=== PATIENT | female | born 1945 | race Asian ===

== ENCOUNTER 2022-01-25 15:18 | Emergency (ER) | payer OTHER ==
[2022-01-25 15:48] VITALS: BMI 20.1
[2022-01-25] MEDS ORDERED: ONDANSETRON 4 MG/2 ML VIAL IVPUSH ONE (15:56)
[2022-01-25] MEDS ORDERED: ACETAMINOPHEN 1000 MG/100 ML BAG IVPB ONE (15:56)
[2022-01-25] MEDS ORDERED: SODIUM CHLORIDE 1,000 ML IV STA (15:56)
[2022-01-25] MEDS ORDERED: ONDANSETRON 4 MG/2 ML VIAL ONE (16:02)
[2022-01-25] MEDS ORDERED: ACETAMINOPHEN INJECTION 100 ML IVPB ONE (16:03)
[2022-01-25 16:24] LABS: HEMATOCRIT 34.7 % (32.4-45.2); HEMOGLOBIN 12.5 G/dL (10.7-15.3); MCH 32.2 pg (25.7-33.7); MEAN CELL VOLUME 89.4 fl (80-96); MEAN PLT VOLUME 9.2 fl (7.5-11.1); PLATELET COUNT 136.7 10^3/uL (134-434); RBC 3.88 10^6/uL (3.60-5.2); RDW 14.5 % (11.6-15.6); WHITE BLOOD COUNT 4.1 10^3/uL (4.0-10.8)
[2022-01-25 16:30] LABS: ALBUMIN 4.4 g/dl (3.4-5.0); BILIRUBIN,TOTAL 1.4 mg/dl (0.2-1); CALCIUM 9.4 mg/dl (8.5-10); CREATININE 0.6 mg/dl (0.55-1.3); TOT PROT 6.4 g/dl (6.4-8.2)
[2022-01-25 16:52] LABS: PLATELET ESTIMATE ADEQUATE
[2022-01-25 17:44] LABS: VENOUS BASE EXCESS 0.3 mmol/L (-2-2); VENOUS O2 SATURATION 94.6 % (70-80); VENOUS PCO2 46.2 mmHg (38-52); VENOUS PH 7.368 (7.310-7.410)
[2022-01-25 18:07] VITALS: BP 139/62; PULSE 60; TEMP 98.8
== END 2022-01-25 18:45 | disposition home or self-care (01) ==
LOC: FER 15:18
PROC: 3E033GC Introduction of Other Therapeutic Substance into Peripheral Vein, Percutaneous Approach (ICD-10-PCS; principal; 2022-01-25)
DX: R42 Dizziness and giddiness (principal)
CPT/HCPCS: 36415; 70450-TC; 71045-TC-FY; 80053; 82010; 82803; 84484; 85027; 93005; 99285-25

== ENCOUNTER 2022-03-07 10:55 | Inpatient (IN) | payer OTHER ==
[2022-03-07 13:29] LABS: HEMATOCRIT 35.5 % (32.4-45.2); HEMOGLOBIN 12.8 G/dL (10.7-15.3); MCH 32.3 pg (25.7-33.7); MCHC 35.9 g/dl (32.0-36.0); MEAN CELL VOLUME 89.8 fl (80-96); MEAN PLT VOLUME 9.1 fl (7.5-11.1); PLATELET COUNT 150.4 10^3/uL (134-434); RBC 3.95 10^6/uL (3.60-5.2); RDW 14.1 % (11.6-15.6); WHITE BLOOD COUNT 5.1 10^3/uL (4.0-10.8)
[2022-03-07 13:37] LABS: ALBUMIN 4.3 g/dl (3.4-5.0); BILIRUBIN,TOTAL 0.9 mg/dl (0.2-1); CALCIUM 9.2 mg/dl (8.5-10); CREATININE 0.5 mg/dl (0.55-1.3); TOT PROT 6.6 g/dl (6.4-8.2)
[2022-03-07 13:52] LABS: PLATELET ESTIMATE ADEQUATE
[2022-03-07] MEDS ORDERED: HEPARIN NA (PORCINE) 5,000 UNITS/ML 1ML VIAL SQ SCH (15:00)
[2022-03-07] MEDS ORDERED: HEPARIN NA (PORCINE) 5,000 UNITS/ML 1ML VIAL ONE (15:15)
[2022-03-07 16:37] LABS: EPITHELIAL CELLS RARE /hpf
[2022-03-07] MEDS: INSULIN SLIDING SCALE (NOVOLOG) 1 VIAL SQ SCH ×2 (18:26→22:23)
[2022-03-07] MEDS: ACETAMINOPHEN 1000 MG/100 ML BAG IVPB PRN (21:18)
[2022-03-08] MEDS: ACETAMINOPHEN 1000 MG/100 ML BAG IVPB PRN ×3 (06:32→20:02)
[2022-03-08] MEDS: INSULIN SLIDING SCALE (NOVOLOG) 1 VIAL SQ SCH ×4 (06:48→21:49)
[2022-03-08] MEDS ORDERED: VANCOMYCIN 1,000 MG VIAL (RESTRICTED TO ID ONLY) ONE (07:17)
[2022-03-08] MEDS ORDERED: ceFAZolin SODIUM 1 GM VIAL ONE ×3 (07:17→08:26)
[2022-03-08] MEDS ORDERED: PROPOFOL 120 ML ONE (07:21)
[2022-03-08] MEDS ORDERED: MIDAZOLAM HCL 2 MG/2 ML SINGLE DOSE VIAL ONE (07:28)
[2022-03-08] MEDS ORDERED: ROPIVACAINE HCL 0.5% 30ML VIAL ONE (07:31)
[2022-03-08] MEDS ORDERED: BUPIVACAINE HCL 50 ML ONE (07:31)
[2022-03-08] MEDS ORDERED: ROPIVACAINE HCL/PF 100 MG/20 ML VIAL ONE (07:39)
[2022-03-08] MEDS ORDERED: TRANEXAMIC ACID 1000 MG/10 ML VIAL ONE (08:28)
[2022-03-08] MEDS ORDERED: MAG HYDROX/AL HYDROX/SIMETH 30 ML UNIT-DOSE CUP PO PRN ×2 (09:11→09:35)
[2022-03-08] MEDS ORDERED: metFORMIN HCL 500 MG TABLET (FP) PO SCH ×3 (09:15→18:00)
[2022-03-08] MEDS ORDERED: PROMETHAZINE HCL 25 MG/1 ML VIAL IVPUSH PRN (09:28)
[2022-03-08] MEDS ORDERED: ONDANSETRON 4 MG/2 ML VIAL IVPUSH PRN (09:28)
[2022-03-08] MEDS ORDERED: HYDROmorphone HCL/PF 1 MG/ML VIAL IVPUSH PRN ×2 (09:28)
[2022-03-08] MEDS: amLODIPine BESYLATE 2.5 MG TABLET (FP) PO SCH (10:00)
[2022-03-08] MEDS ORDERED: SENNOSIDES/DOCUSATE COMBO (SENNA PLUS) TABLET (UD) PO SCH (10:00)
[2022-03-08] MEDS ORDERED: TIMOLOL 0.5% OPHTHALMIC SOL 5 ML BOTTLE OU SCH (10:00)
[2022-03-08] MEDS ORDERED: LOSARTAN POTASSIUM 25 MG TABLET PO SCH (10:00)
[2022-03-08] MEDS ORDERED: amLODIPine BESYLATE 2.5 MG TABLET (FP) PO SCH (10:00)
[2022-03-08] MEDS: MULTIVITAMINS (DAILY MVI) TABLET (FP) PO SCH (10:00)
[2022-03-08] MEDS: SENNOSIDES/DOCUSATE COMBO (SENNA PLUS) TABLET (UD) PO SCH ×2 (10:00→21:48)
[2022-03-08] MEDS: LOSARTAN POTASSIUM 25 MG TABLET PO SCH (10:00)
[2022-03-08] MEDS ORDERED: MULTIVITAMINS (DAILY MVI) TABLET (FP) PO SCH (10:00)
[2022-03-08] MEDS: PANTOPRAZOLE 40 MG TABLET PO SCH (10:00)
[2022-03-08] MEDS ORDERED: PANTOPRAZOLE 40 MG TABLET PO SCH (10:00)
[2022-03-08] MEDS: TIMOLOL 0.5% OPHTHALMIC SOL 5 ML BOTTLE OU SCH ×2 (11:00→21:50)
[2022-03-08] MEDS: LACTATED RINGERS SOLUTION 1,000 ML IV SCH (12:34)
[2022-03-08] MEDS ORDERED: CEFAZOLIN SODIUM 2 GM in DEXTROSE 5%-WATER 100 ML IVPB SCH (16:00)
[2022-03-08] MEDS: CEFAZOLIN SODIUM 2 GM in SODIUM CHLORIDE 100 ML IVPB SCH ×2 (16:38→23:05)
[2022-03-08] MEDS: ROSUVASTATIN CA 10 MG TABLET PO SCH (21:49)
[2022-03-08] MEDS ORDERED: ROSUVASTATIN CA 10 MG TABLET PO SCH (22:00)
[2022-03-09] MEDS: ACETAMINOPHEN 1000 MG/100 ML BAG IVPB PRN (05:54)
[2022-03-09] MEDS: glipiZIDE 5 MG TABLET (FP) PO SCH (06:58)
[2022-03-09] MEDS: metFORMIN HCL 500 MG TABLET (FP) PO SCH (06:58)
[2022-03-09] MEDS: sitaGLIPtin PHOSPHATE 50 MG TABLET PO SCH (06:58)
[2022-03-09] MEDS: INSULIN SLIDING SCALE (NOVOLOG) 1 VIAL SQ SCH ×4 (06:59→21:17)
[2022-03-09] MEDS ORDERED: glipiZIDE 10 MG TABLET (FP) PO SCH (07:00)
[2022-03-09] MEDS ORDERED: ASPIRIN 325 MG TABLET PO SCH (08:00)
[2022-03-09 08:13] LABS: HEMATOCRIT 35.5 % (32.4-45.2); HEMOGLOBIN 12.4 G/dL (10.7-15.3); MCH 31.5 pg (25.7-33.7); MCHC 34.9 g/dl (32.0-36.0); MEAN CELL VOLUME 90.3 fl (80-96); MEAN PLT VOLUME 9.6 fl (7.5-11.1); PLATELET COUNT 124.6 10^3/uL (134-434); RBC 3.93 10^6/uL (3.60-5.2); RDW 13.7 % (11.6-15.6); WHITE BLOOD COUNT 6.8 10^3/uL (4.0-10.8)
[2022-03-09 08:19] LABS: CALCIUM 8.6 mg/dl (8.5-10); CREATININE 0.5 mg/dl (0.55-1.3)
[2022-03-09] MEDS: SENNOSIDES/DOCUSATE COMBO (SENNA PLUS) TABLET (UD) PO SCH ×2 (09:38→21:14)
[2022-03-09] MEDS: LOSARTAN POTASSIUM 25 MG TABLET PO SCH (09:39)
[2022-03-09] MEDS: ASPIRIN 325 MG TABLET PO SCH (09:39)
[2022-03-09] MEDS: MULTIVITAMINS (DAILY MVI) TABLET (FP) PO SCH (09:39)
[2022-03-09] MEDS: PANTOPRAZOLE 40 MG TABLET PO SCH (09:39)
[2022-03-09] MEDS: LACTATED RINGERS SOLUTION 1,000 ML IV SCH (09:40)
[2022-03-09] MEDS: amLODIPine BESYLATE 2.5 MG TABLET (FP) PO SCH (09:40)
[2022-03-09] MEDS: TIMOLOL 0.5% OPHTHALMIC SOL 5 ML BOTTLE OU SCH ×2 (11:00→21:14)
[2022-03-09] MEDS: traMADol HCL 50 MG TABLET PO PRN (15:52)
[2022-03-09] MEDS: ROSUVASTATIN CA 10 MG TABLET PO SCH (21:14)
[2022-03-09 23:45] VITALS: BMI 19.3
[2022-03-10] MEDS: traMADol HCL 50 MG TABLET PO PRN ×2 (06:44→16:48)
[2022-03-10] MEDS: INSULIN SLIDING SCALE (NOVOLOG) 1 VIAL SQ SCH ×4 (06:45→21:23)
[2022-03-10] MEDS: glipiZIDE 5 MG TABLET (FP) PO SCH (06:45)
[2022-03-10] MEDS: sitaGLIPtin PHOSPHATE 50 MG TABLET PO SCH (06:45)
[2022-03-10] MEDS: metFORMIN HCL 500 MG TABLET (FP) PO SCH (06:45)
[2022-03-10] MEDS: ASPIRIN 325 MG TABLET PO SCH (08:41)
[2022-03-10 09:07] LABS: ALBUMIN 3.4 g/dl (3.4-5.0); BILIRUBIN,TOTAL 1.4 mg/dl (0.2-1); CALCIUM 8.4 mg/dl (8.5-10); CREATININE 0.6 mg/dl (0.55-1.3); MAGNESIUM 1.5 mg/dL (1.8-2.4); TOT PROT 5.5 g/dl (6.4-8.2)
[2022-03-10] MEDS ORDERED: MAGNESIUM OXIDE 400 MG TABLET (FP) PO ONE (09:26)
[2022-03-10] MEDS: ACETAMINOPHEN 325 MG TABLET (FP) PO PRN (09:56)
[2022-03-10] MEDS: SENNOSIDES/DOCUSATE COMBO (SENNA PLUS) TABLET (UD) PO SCH ×2 (09:56→21:21)
[2022-03-10] MEDS: MULTIVITAMINS (DAILY MVI) TABLET (FP) PO SCH (09:57)
[2022-03-10] MEDS: amLODIPine BESYLATE 2.5 MG TABLET (FP) PO SCH (09:57)
[2022-03-10] MEDS: PANTOPRAZOLE 40 MG TABLET PO SCH (09:57)
[2022-03-10] MEDS: LOSARTAN POTASSIUM 25 MG TABLET PO SCH (09:57)
[2022-03-10] MEDS: TIMOLOL 0.5% OPHTHALMIC SOL 5 ML BOTTLE OU SCH ×2 (10:00→21:22)
[2022-03-10 10:13] LABS: BASO % 0.1 % (0-2.0); EOS % 0.5 % (0-4.5); HEMATOCRIT 30.9 % (32.4-45.2); HEMOGLOBIN 10.7 GM/dL (10.7-15.3); LYMPH % 14.6 % (8-40); MCH 30.8 pg (25.7-33.7); MCHC 34.7 g/dl (32.0-36.0); MEAN CELL VOLUME 88.8 fl (80-96); MEAN PLT VOLUME 9.7 fl (7.5-11.1); MONO % 13.5 % (3.8-10.2); NEUT % 71.3 % (42.8-82.8); PLATELET COUNT 127 10^3/uL (134-434); RBC 3.49 M/mm3 (3.60-5.2); RDW 13.2 % (11.6-15.6); WHITE BLOOD COUNT 6.2 K/mm3 (4.0-10.0)
[2022-03-10] MEDS: LACTATED RINGERS SOLUTION 1,000 ML IV SCH (11:46)
[2022-03-10] MEDS: ROSUVASTATIN CA 10 MG TABLET PO SCH (21:21)
[2022-03-11] MEDS: INSULIN SLIDING SCALE (NOVOLOG) 1 VIAL SQ SCH ×4 (06:46→21:58)
[2022-03-11] MEDS: metFORMIN HCL 500 MG TABLET (FP) PO SCH (06:46)
[2022-03-11] MEDS: sitaGLIPtin PHOSPHATE 50 MG TABLET PO SCH (06:47)
[2022-03-11] MEDS: glipiZIDE 5 MG TABLET (FP) PO SCH (06:47)
[2022-03-11] MEDS: traMADol HCL 50 MG TABLET PO PRN (06:47)
[2022-03-11 08:10] LABS: HEMATOCRIT 32.2 % (32.4-45.2); HEMOGLOBIN 11.3 G/dL (10.7-15.3); MCH 31.6 pg (25.7-33.7); MCHC 35.1 g/dl (32.0-36.0); MEAN CELL VOLUME 90.2 fl (80-96); MEAN PLT VOLUME 9.2 fl (7.5-11.1); PLATELET COUNT 153.7 10^3/uL (134-434); RBC 3.57 10^6/uL (3.60-5.2); WHITE BLOOD COUNT 6.7 10^3/uL (4.0-10.8)
[2022-03-11 08:18] LABS: ALBUMIN 3.3 g/dl (3.4-5.0); BILIRUBIN,TOTAL 1.2 mg/dl (0.2-1); CALCIUM 8.5 mg/dl (8.5-10); CREATININE 0.6 mg/dl (0.55-1.3); MAGNESIUM 1.6 mg/dL (1.8-2.4); TOT PROT 5.8 g/dl (6.4-8.2)
[2022-03-11 10:07] LABS: BASO % 0.2 % (0-2.0); HEMATOCRIT 31.9 % (32.4-45.2); HEMOGLOBIN 11.1 GM/dL (10.7-15.3); LYMPH % 16.6 % (8-40); MCH 30.7 pg (25.7-33.7); MCHC 34.7 g/dl (32.0-36.0); MEAN CELL VOLUME 88.5 fl (80-96); MONO % 9.6 % (3.8-10.2); NEUT % 72.6 % (42.8-82.8); PLATELET COUNT 165 10^3/uL (134-434); RBC 3.61 M/mm3 (3.60-5.2); RDW 13.2 % (11.6-15.6); WHITE BLOOD COUNT 6.4 K/mm3 (4.0-10.0)
[2022-03-11] MEDS: ACETAMINOPHEN 1000 MG/100 ML BAG IVPB PRN (12:58)
[2022-03-11] MEDS: amLODIPine BESYLATE 2.5 MG TABLET (FP) PO SCH (16:01)
[2022-03-11] MEDS: LOSARTAN POTASSIUM 25 MG TABLET PO SCH (16:02)
[2022-03-11] MEDS: INSULIN (LEVEMIR) 100 UNITS/ML UNITS SQ SCH ×2 (16:05→22:01)
[2022-03-11] MEDS: TIMOLOL 0.5% OPHTHALMIC SOL 5 ML BOTTLE OU SCH ×2 (16:43→22:04)
[2022-03-11] MEDS: PANTOPRAZOLE 40 MG TABLET PO SCH (16:45)
[2022-03-11] MEDS: MULTIVITAMINS (DAILY MVI) TABLET (FP) PO SCH (16:54)
[2022-03-11] MEDS: ASPIRIN 325 MG TABLET PO SCH ×2 (16:54→17:19)
[2022-03-11] MEDS: SENNOSIDES/DOCUSATE COMBO (SENNA PLUS) TABLET (UD) PO SCH ×2 (16:54→22:02)
[2022-03-11] MEDS: ROSUVASTATIN CA 10 MG TABLET PO SCH (22:02)
[2022-03-11] MEDS: ACETAMINOPHEN 325 MG TABLET (FP) PO PRN (23:43)
[2022-03-12] MEDS: INSULIN (LEVEMIR) 100 UNITS/ML UNITS SQ SCH ×2 (07:07→21:33)
[2022-03-12] MEDS: ACETAMINOPHEN 325 MG TABLET (FP) PO PRN ×2 (07:08→21:32)
[2022-03-12] MEDS: INSULIN SLIDING SCALE (NOVOLOG) 1 VIAL SQ SCH ×4 (07:09→23:11)
[2022-03-12 07:54] LABS: ALBUMIN 3.2 g/dl (3.4-5.0); BILIRUBIN,TOTAL 1.3 mg/dl (0.2-1); CALCIUM 8.8 mg/dl (8.5-10); CREATININE 0.5 mg/dl (0.55-1.3); MAGNESIUM 1.6 mg/dL (1.8-2.4); TOT PROT 5.7 g/dl (6.4-8.2)
[2022-03-12] MEDS: ASPIRIN 325 MG TABLET PO SCH (07:55)
[2022-03-12 08:20] LABS: BASO % 0.3 % (0-2.0); EOS % 2.6 % (0-4.5); HEMATOCRIT 29.7 % (32.4-45.2); HEMOGLOBIN 10.4 GM/dL (10.7-15.3); LYMPH % 18.3 % (8-40); MCH 30.8 pg (25.7-33.7); MCHC 34.9 g/dl (32.0-36.0); MEAN CELL VOLUME 88.2 fl (80-96); MEAN PLT VOLUME 9.5 fl (7.5-11.1); NEUT % 67.8 % (42.8-82.8); PLATELET COUNT 171 10^3/uL (134-434); RBC 3.36 M/mm3 (3.60-5.2); RDW 13.2 % (11.6-15.6); WHITE BLOOD COUNT 5.2 K/mm3 (4.0-10.0)
[2022-03-12] MEDS ORDERED: MAGNESIUM SULF 50% (8.12 MEQ/2 ML-1 GM VIAL) IVPB ONE (08:48)
[2022-03-12] MEDS: PANTOPRAZOLE 40 MG TABLET PO SCH (09:14)
[2022-03-12] MEDS: MULTIVITAMINS (DAILY MVI) TABLET (FP) PO SCH (09:14)
[2022-03-12] MEDS: CYCLOBENZAPRINE HCL 10 MG TABLET (FP) PO PRN (09:15)
[2022-03-12] MEDS ORDERED: MAGNESIUM 1GM/D5W - 1 GM/100 ML IVPB IVPB ONE (09:15)
[2022-03-12] MEDS: SENNOSIDES/DOCUSATE COMBO (SENNA PLUS) TABLET (UD) PO SCH ×2 (09:18→21:32)
[2022-03-12] MEDS: LOSARTAN POTASSIUM 25 MG TABLET PO SCH (09:19)
[2022-03-12] MEDS: TIMOLOL 0.5% OPHTHALMIC SOL 5 ML BOTTLE OU SCH ×2 (09:19→23:12)
[2022-03-12] MEDS: ROSUVASTATIN CA 10 MG TABLET PO SCH (21:30)
[2022-03-13] MEDS: CYCLOBENZAPRINE HCL 10 MG TABLET (FP) PO PRN (06:22)
[2022-03-13] MEDS: INSULIN (LEVEMIR) 100 UNITS/ML UNITS SQ SCH ×2 (06:22→22:41)
[2022-03-13] MEDS: ASPIRIN 325 MG TABLET PO SCH (08:09)
[2022-03-13] MEDS: INSULIN SLIDING SCALE (NOVOLOG) 1 VIAL SQ SCH ×4 (08:12→22:56)
[2022-03-13] MEDS: MULTIVITAMINS (DAILY MVI) TABLET (FP) PO SCH (09:51)
[2022-03-13] MEDS: PANTOPRAZOLE 40 MG TABLET PO SCH (09:51)
[2022-03-13] MEDS: ACETAMINOPHEN 325 MG TABLET (FP) PO PRN (09:51)
[2022-03-13] MEDS: SENNOSIDES/DOCUSATE COMBO (SENNA PLUS) TABLET (UD) PO SCH ×2 (09:57→22:42)
[2022-03-13] MEDS: LOSARTAN POTASSIUM 25 MG TABLET PO SCH (09:57)
[2022-03-13] MEDS: LACTATED RINGERS SOLUTION 1,000 ML IV SCH (09:58)
[2022-03-13] MEDS: TIMOLOL 0.5% OPHTHALMIC SOL 5 ML BOTTLE OU SCH ×2 (10:00→22:44)
[2022-03-13] MEDS: ACETAMINOPHEN 1000 MG/100 ML BAG IVPB PRN (15:44)
[2022-03-13] MEDS: ROSUVASTATIN CA 10 MG TABLET PO SCH (22:41)
[2022-03-14] MEDS: INSULIN SLIDING SCALE (NOVOLOG) 1 VIAL SQ SCH (06:15)
[2022-03-14] MEDS: INSULIN (LEVEMIR) 100 UNITS/ML UNITS SQ SCH (07:08)
[2022-03-14] MEDS: ASPIRIN 325 MG TABLET PO SCH (08:40)
[2022-03-14] MEDS: ACETAMINOPHEN 325 MG TABLET (FP) PO PRN (10:02)
[2022-03-14] MEDS: SENNOSIDES/DOCUSATE COMBO (SENNA PLUS) TABLET (UD) PO SCH (10:02)
[2022-03-14] MEDS: MULTIVITAMINS (DAILY MVI) TABLET (FP) PO SCH (10:02)
[2022-03-14] MEDS: PANTOPRAZOLE 40 MG TABLET PO SCH (10:02)
[2022-03-14] MEDS: LOSARTAN POTASSIUM 25 MG TABLET PO SCH (10:02)
[2022-03-14 14:00] VITALS: BP 105/55; PULSE 80; RESP 18; TEMP 99.1
== END 2022-03-14 14:48 | DRG 522 ==
LOC: FER 10:55 → FM/S 14:13
PROC: 0SRR0JZ Replacement of Right Hip Joint, Femoral Surface with Synthetic Substitute, Open Approach (ICD-10-PCS; principal; 2022-03-08 08:33)
DX: S72.001A Fracture of unspecified part of neck of right femur, initial encounter for closed fracture (principal); E87.1 Hypo-osmolality and hyponatremia; I10 Essential (primary) hypertension; E11.9 Type 2 diabetes mellitus without complications; E78.5 Hyperlipidemia, unspecified; E83.42 Hypomagnesemia; R26.81 Unsteadiness on feet; R51.9 Headache, unspecified; W01.0XXA Fall on same level from slipping, tripping and stumbling without subsequent striking against object, initial encounter; Y92.481 Parking lot as the place of occurrence of the external cause
CPT/HCPCS: 0241U-QW; 36415; 70450-TC; 71045-TC-FY; 73502-TC-RT-FY; 80048; 80053; 81003; 81015; 82962; 83735; 85025; 85027; 86850; 86900; 86901; 88305-TC; 88311-TC; 93005; 94760; 97116-GP; 97161-GP; 99285-25; C9803-CS; J1644; U0003; U0005